=== PATIENT | male | born 1970 | race Caucasian/White ===

== ENCOUNTER → 2017-02-21 | Outpatient (CLI) | payer BC ==
[~2017-02-21] MED LIST: NS 100 ML IV 100 ML IV ONE
--- NOTE | 2017-02-21 09:38 | CT ---
CT abdomen and pelvis with contrast Indication: Right lower quadrant abdominal pain. Nausea. Comparison: None Technique: CT images of the abdomen and pelvis were obtained after IV contrast administration. Automatic exposure control was utilized. Findings: The lung bases are clear. No aggressive osseous lesion is seen. The gallbladder is surgically absent. A 9 mm rounded hypodensity within the right hepatic lobe on ax ial image 27 cannot be definitively characterized, but is of doubtful clinical significance, likely a benign cyst. There is a small hiatal hernia of the stomach, which is otherwise unremarkable. The s pleen, duodenum, pancreas, adrenals, and kidneys are unremarkable. A few scattered colonic diverticu la are noted. No significant bowel thickening or dilatation is observed. The lower GI tract. The jonathan endix is well seen and appears normal. The urinary bladder, prostate, and rectum are unremarkable. N o free fluid or adenopathy identified. There are small fat containing inguinal hernias. Impression: No acute process identified to explain patient's symptoms. Normal appearing appendix. Diverticulosis, small hiatal hernia, and other findings as above. Reported By:
== END ==
LOC: RAD 08:47
PROVIDERS: ATTEND Nurse Practitioner
DX: R10.31 Right lower quadrant pain (principal)
CPT/HCPCS: 74177; A4222